=== PATIENT | female | born 1985 | race Caucasian/White ===

== ENCOUNTER 2022-07-05 15:38 | Emergency (ER) | payer OTHER, SELFPAY ==
[2022-07-05] VITALS (8 sets, daily range): BP systolic 119–159; BP diastolic 80–103; PULSE 98–112; RESP 16–18; TEMP 36.7–36.8; O2SAT 97–99; BMI 46.0
--- NOTE | 2022-07-05 15:45 | HMH.EDABDPAI ---
Discharge Plan Disposition Patient Disposition: Home, Self-Care Condition: Fair Prescriptions Prescriptions: New amoxicillin-pot clavulanate [Augmentin] 500-125 mg tablet 1 tab PO BID Qty: 20 0RF hydrocodone-acetaminophen 7.5-325 mg tablet 1 tab PO Q8H PRN (Reason: pain) Qty: 10 0RF Referrals Follow up/Referrals: Provider,Kathryn, [Primary Care Provider] - See instructions Lb Taylor MD [Staff Physician] - See instructions Activity Restrictions/Add. Instructions Additional Instructions/Restrictions: Follow-up with your primary care doctor and or a general surgeon within the next week. Your ultrasound today showed gallstones in your gallbladder. There is no evidence of a gallstone blocking any of your ducts at this time. Also, your gallbladder looks mildly inflamed or infected. Avoid fatty foods. This includes healthy oils such as olive oil. Follow-up with Dr. Taylor, the surgeon on Thursday. Please return to the emergency department immediately if you feel worse in any way. Clinical Impressions Clinical Impression: Cholelithiasis and acute cholecystitis without obstruction Instructions Patient Instructions: DI for Gallstones Discharge ED Provider: Sanya Collazo Abdominal Pain HPI General Chief Complaint: Abdominal Pain Stated Complaint: abdomen pain Time Seen by Provider: 07/05/22 15:45 Mode of Arrival: Ambulatory Source of Information: Patient Limitations: No Limitations History of Present Illness HPI narrative: The patient presents to the emergency department complaining of right upper quadrant pain that began yesterday about half an hour after having had dinner. This is associated with some mild nausea. She vomited once. She denies any diarrhea, hematemesis or hematochezia. She also denies fevers. Related Data Previous Rx's Medication Instructions Recorded amoxicillin 500 mg-potassium 1 tab PO BID #20 tabs 07/05/22 clavulanate 125 mg tablet (Augmentin) hydrocodone 7.5 mg-acetaminophen 1 tab PO Q8H PRN pain #10 tabs 07/05/22 325 mg tablet Allergies Allergy/AdvReac Type Severity Reaction Status Date / Time No Known Allergies Allergy Verified 07/05/22 15:53 PFSH PFSH Social History Smoking Status: Never smoker alcohol intake: never current occupational status: employed Travel in the last 8 weeks: None ROS Obtained: Yes All systems reviewed & no additional complaints except as documented Physical Exam General General appearance: alert Head Head exam: atraumatic Eye Eye exam: Present normal appearance; Absent scleral icterus ENT ENT exam: Present normal exam Neck Neck exam: Present normal inspection and full ROM; Absent tenderness or meningismus Chest Chest inspection: Present normal inspection and symmetric chest wall rise; Absent tenderness Respiratory Respiratory exam: Present normal lung sounds bilaterally; Absent respiratory distress or accessory muscle use Cardiovascular Cardiovascular exam: Present regular rate, normal rhythm and normal heart sounds Abdominal Exam Abdominal exam: Present soft, tenderness (Mild right upper quadrant tenderness.) and normal bowel sounds; Absent distention, heel tap sign, Sepulveda's sign, Rovsing's sign, tenderness at McBurney's Point or mass Extremities Exam Extremities exam: Present normal inspection and full ROM; Absent edema Back Exam Back exam: Present normal inspection; Absent CVA tenderness (R) or CVA tenderness (L) Neurological Exam Neurological exam: Present alert and oriented X3 Psychiatric Psychiatric exam: Present normal affect and normal mood Skin Skin exam: Present warm, dry, intact and normal color Medical Decision Making Anselmo Inquiry Pt receiving controlled substance: Yes Anselmo was queried for this patient: Yes Risks and benefits of using a controlled substance: were discussed with pt by Vital Signs: 07/05/22 15:40 07/05/22 16:00 07/05/22 16:30 Temperature 98.3 F Temper
[2022-07-05 16:09] LABS: Microscopic, Urine URINE MICROSCOPIC (MICROSCOPIC)
[2022-07-05 16:19] LABS: Basophils # 0.2 K/mm3 (0-0.2); Basophils % 1.4 % (0.1-2.0); Chloride 99 mmol/L (98-107); Eosinophils # 0.3 K/mm3 (0.0-0.4); Eosinophils % 1.5 % (0.1-12.0); Hemoglobin 16.3 g/dL (12.2-16.2); Lymphocytes # 2.7 K/mm3 (0.7-4.5); Lymphocytes % 15.8 % (10-50); Mean Corpuscular Hemoglobin 30.5 pg (27.0-31.2); Mean Corpuscular Volume 89.6 fl (81-99); Monocytes # 0.9 K/mm3 (0.1-1.0); Monocytes % 5.5 % (1.7-9.3); Neutrophils # 12.8 K/mm3 (1.8-7.8); Neutrophils % 75.9 % (37.0-80.0); Platelet Count 447 K/mm3 (142-424); Red Blood Count 5.36 M/mm3 (4.20-5.40); Red Cell Distribution Width 13.3 % (11.5-17.5); Sodium 140 mmol/L (136-145); White Blood Count 16.9 K/mm3 (4.8-10.8)
[2022-07-05 16:20] LABS: HCG Qualitative, Serum Negative (Negative); Potassium 3.8 mmoL/L (3.5-5.1)
[2022-07-05 16:22] LABS: Alanine Aminotransferase 45 U/L (12-78); Alkaline Phosphatase 88 U/L (38-126); Anion Gap 17.8 mEq/L (5-15); Aspartate Amino Transferase 33 U/L (14-36); Bilirubin,Total 0.4 mg/dl (0.2-1.3); Blood Urea Nitrogen 6 mg/dl (7-17); Calcium 9.4 mg/dl (8.4-10.2); Carbon Dioxide 27 mmol/L (22.0-30.0); Creatinine Clearance Estimated 81 mL/min (50-200); Estimated Glomerular Filt Rate 93 ml/min (>60); GFR (African American) 113 ML/MIN (>60); Glucose 104 mg/dl (74-100); Lipase 39 U/L (23-300)
[2022-07-05 16:23] LABS: Albumin/Globulin Ratio 1.2 (1.1-1.8); Globulin 4.2 g/dL (1.3-3.2); Total Protein,Serum 9.2 g/dl (6.3-8.2)
[2022-07-05 16:29] LABS: Appearance,Urine CLEAR (Clear); Bilirubin,Urine Negative (Negative); Blood, Urine 2+ (Negative); Color,Urine YELLOW (Yellow); Glucose,Urine (UA) Negative (Negative); Ketones,Urine Negative (Negative); Leukocyte Esterase,Urine Negative (Negative); Nitrate,Urine Negative (Negative); Protein,Urine Negative (Negative); Specific Gravity, Urine >= 1.030 (1.005-1.030); Urobilinogen,Urine 0.2 EU/dl (0.2)
[2022-07-05 16:31] LABS: MANUAL DIFFERENTIAL MANUAL DIFFERENTIAL (MANUAL DIFF)
--- NOTE | 2022-07-05 16:32 | US_ITS ---
PROCEDURE INFORMATION: Exam: US Abdomen, Limited; Right Upper Quadrant Exam date and time: 07/05/2022 5:58 PM Age: 37 years old Clinical indication: Abdominal pain; Localized; Right upper quadrant (ruq); Additional info: Ruq pain with elevated wbc TECHNIQUE: Imaging protocol: Real time ultrasound of the abdomen with image documentation. Limited exam focused on the right upper quadrant. COMPARISON: No relevant prior studies available. FINDINGS: Liver: Unremarkable. Gallbladder: Gallbladder is moderately distended and contains multiple gallstones of variable sizes. Gallbladder wall is mildly thickened with trace pericholecystic fluid. Sonographic Sepulveda sign was not documented in household personal assistant report. Biliary ducts: No intra- or extra-hepatic ductal dilatation. Pancreas: Visualized portion is unremarkable. No evidence of pancreatic ductal dilatation. Right kidney: Normal in size and echogenicity. No evidence of stones. No hydronephrosis. IMPRESSION: Findings detailed above are compatible with acute gallstone cholecystitis.
[2022-07-05 16:48] LABS: Bacteria,Urine Trace /lpf; WBC,Urine Occasional #/hpf (0-3)
--- NOTE | 2022-07-05 16:57 | HMH.ITSTN ---
Joaquín Cueva is wanting an ultrasound of the gallbladder. I advised tech will be in at 6 he agreed for her to scan pt then. I advised aircraft maintenance technician
[2022-07-05 17:17] LABS: Lymphocytes % 15 % (10-50); Monocytes % 7 % (2-9); Neutrophils % 78 % (42-76); Platelet Estimate Normal; RBC Morphology Normal; Total Cells Counted 100
--- NOTE | 2022-07-05 17:54 | PC.NURSE ---
pt to u/s at this time
--- NOTE | 2022-07-05 19:17 | PC.NURSE ---
Dr Collazo speaking with Dr Taylor
--- NOTE | 2022-07-05 19:23 | PC.NURSE ---
PT IS LESLEY F/U OUTPT WITH DR LOZANO
== END 2022-07-05 19:55 | disposition home or self-care (01) ==
PROVIDERS: Emergency Provider Emergency Medicine
DX: K80.00 Calculus of gallbladder with acute cholecystitis without obstruction (principal)
CPT/HCPCS: 76705; 80053; 81001; 83690; 84703; 85007; 85025; 96365; 96372; 96375; 99284; J2405

== ENCOUNTER → 2022-07-09 10:41 | Outpatient (CLI) | payer OTHER, SELFPAY ==
[2022-07-09 10:47] LABS: Coronavirus 19, PCR Not Detected (NotDetected); Influenza A, PCR Not Detected (NotDetected); Influenza B, PCR Not Detected (NotDetected)
[2022-07-09 11:05] LABS: Basophils # 0.2 K/mm3 (0-0.2); Basophils % 1.9 % (0.1-2.0); Eosinophils # 0.6 K/mm3 (0.0-0.4); Eosinophils % 6.2 % (0.1-12.0); Hematocrit 41.9 % (37.0-47.0); Hemoglobin 13.6 g/dL (12.2-16.2); Lymphocytes # 2.1 K/mm3 (0.7-4.5); Lymphocytes % 22.9 % (10-50); Mean Corpuscular HGB Conc 32.5 g/dL (31.8-35.4); Mean Corpuscular Volume 92.2 fl (81-99); Mean Platelet Volume 7.9 fl (7.4-10.4); Monocytes # 0.5 K/mm3 (0.1-1.0); Monocytes % 5.5 % (1.7-9.3); Neutrophils # 5.7 K/mm3 (1.8-7.8); Neutrophils % 63.6 % (37.0-80.0); Platelet Count 415 K/mm3 (142-424); Red Blood Count 4.54 M/mm3 (4.20-5.40); Red Cell Distribution Width 13.4 % (11.5-17.5)
[2022-07-09 12:03] LABS: Urine Pregnancy, HCG Qual. Negative (Negative)
[2022-07-09 12:36] LABS: Chloride 100 mmol/L (98-107); Potassium 4.5 mmoL/L (3.5-5.1); Sodium 139 mmol/L (136-145)
[2022-07-09 12:39] LABS: Alanine Aminotransferase 46 U/L (12-78); Albumin Level 4.1 g/dl (3.5-5.0); Albumin/Globulin Ratio 1.4 (1.1-1.8); Alkaline Phosphatase 104 U/L (38-126); Anion Gap 14.5 mEq/L (5-15); Aspartate Amino Transferase 37 U/L (14-36); Bilirubin,Total 0.3 mg/dl (0.2-1.3); Blood Urea Nitrogen 4 mg/dl (7-17); Calcium 8.7 mg/dl (8.4-10.2); Carbon Dioxide 29 mmol/L (22.0-30.0); Estimated Glomerular Filt Rate 111 ml/min (>60); GFR (African American) 135 ML/MIN (>60); Glucose 89 mg/dl (74-100); Total Protein,Serum 7.1 g/dl (6.3-8.2)
== END ==
PROVIDERS: PCP Internal Medicine; Visit Provider Surgery
DX: Z01.812 Encounter for preprocedural laboratory examination (principal); Z20.822 Contact with and (suspected) exposure to COVID-19; K80.00 Calculus of gallbladder with acute cholecystitis without obstruction
CPT/HCPCS: 36415; 80053; 81025; 85025; C9803; U0003; U0005

== ENCOUNTER 2022-07-10 08:08 | Day surgery (SDC) | payer OTHER, SELFPAY ==
[2022-07-10] VITALS (11 sets, daily range): BP systolic 110–152; BP diastolic 77–90; PULSE 91–125; RESP 16–22; TEMP 36.1–43; O2SAT 93–97; BMI 45.7
--- NOTE | 2022-07-10 08:57 | EXP.ANES.CKL ---
PFSH PFS Medical History Allergies Gallbladder disease Surgical History No significant past surgical history Family History Other Family history of asthma Family history of hypertension Family history of hypothyroidism Family history of myocardial infarction Social History Smoking Status: Never smoker alcohol intake: never substance use type: denies use current occupational status: employed Travel in the last 8 weeks: None household members: family housing: house marital status: number of children: 1 education level: high school special tsering needs: No agree to transfusion: No do you feel safe at home: Yes victim of physical abuse: No victim of emotional abuse: No victim of sexual abuse: No would you like helpful sources: No [facility] Anesthesia Checklist Patient Identification Patient Identification: Arm Band Structural Data Admitted From: Home Planned Operative Procedure/s: Laparoscopic Cholecystectomy Consent for Planned Operative Procedure(s) Verified: Yes Verified Documents: Surgical Consent and History and Physical NPO Status Verified Time NPO: 00:00 Additional verifications Anesthesia Reactions: No Hx Blood Transfusions: No Blood Transfusion Reaction: No Airway Assessment C-Spine Mobility Assessed: Yes (mp2) TMJ Mobility Assessed: Yes Dentition: Good Dentition Neurological Assessment Level of Consciousness: Awake and Alert Anesthesia Plan Anesthesia Risk discussed: Yes Anesthesia Plan: Verified ASA Class: III Anesthesia Type: General
--- NOTE | 2022-07-10 11:46 | P.OP_ITS ---
Date of procedure: 07/10/22 Pre-op Diagnosis:: Acute calculus cholecystitis Post-op Diagnosis:: Same Procedure performed:: Laparoscopic cholecystectomy Surgeon:: Lb Taylor MD Anesthesia: GETA Estimated blood loss (mL): 25 Operative findings:: Severe gallbladder distention Severe acute inflammatory response Early focal serosal necrosis along dome of gallbladder Dome down approach utilized secondary to above findings Operative note:: After informed consent was obtained, the patient was taken to the operating room and placed in the supine position. General anesthesia was induced and the abdomen was prepped and draped in a sterile fashion. After infiltration with local anesthetic an infraumbilical incision was made. A Veress needle was placed in position. The abdomen was insufflated. A 5 mm optical trocar was placed in position. Under direct visualization, a 12 mm trocar was placed in the subxiphoid position and 2 additional 5 mm trocars were placed in the right upper quadrant. The gallbladder was elevated up and over the liver margin. Severe distention and inflammatory changes noted. Focal serosal necrosis/erosion was also noted. The gallbladder was decompressed by way of suctioning after a small opening within the dome was made with harmonic roz. Severe tissue thickening and inflammatory changes were noted throughout. The tissue around the cystic duct was carefully dissected. The decision was made to proceed with a dome down approach secondary to severe infundibular thickening. Harmonic roz were then utilized to dissect the gallbladder away from the liver margin. Endoloops (x2) were then used to control the infundibulum prior to transection with harmonic roz. The gallbladder was placed in a retrieval bag and removed through the subxiphoid trocar site. The right upper quadrant wa s thoroughly irrigated. No active bleeding or bile leak was noted. Fascia at the subxiphoid trocar site was reapproximated utilizing 0 Ethibond. The remaining trocars were removed. All wounds were irrigated and skin was closed with rashaad The patient's anesthetic agents were reversed and extubation was completed prior to transfer to recovery in stable condition. Condition: stable Disposition: PACU Specimens:: Gallbladder and contents Complications:: No immediate
--- NOTE | 2022-07-10 12:01 | P.PNANES_ITS ---
[facility] Anesthesia Record Part I Anesthesia Record I Intake, IV Amount: 600 Estimated blood loss (mL): 25 Urine output (mL): 0 Blood Products used (#): none Blood Pressure: 133/78 SaO2: 97 Pulse Rate: 125 Respiratory Rate: 20 Temperature: 99.4 F Patient is:: Drowsy and Stable Stable to PACU at:: 11:48
--- NOTE | 2022-07-10 12:30 | PC.NURSE ---
1214-pt's HR remains 120's after fluid bolus administered as ordered per Bhupendra,Bhupendra MICHAELS at bedside and administered Metoprolol 2mg ivp xonce (see anesthesia record for details), pt remains sinus rhythm on telemetry, will continue to monitor
--- NOTE | 2022-07-10 12:32 | PC.NURSE ---
1226-detailed report called to Susan,YESIKA 1229-pt transported to post op via stretcher w/sharon rails up and left in care of YESIKA Liang and YESIKA Davis with bed locked in lowest position, vss, pt stable
[2022-07-11 09:24] VITALS: BP 110/77; PULSE 94; TEMP 36.9
--- NOTE | 2022-07-11 09:24 | P.PNANES_ITS ---
[facility] Anesthesia Record Part II Anesthesia Record Part II Discharge Time: 12:28 Destination: Surgical Day Care (OP Surgery) PACU nurse assessment reviewed?: Yes Patient Condition:: Good Anesthesia Complications:: None Swallowing reflex intact?: Yes Cyanosis?: No Blood Pressure: 110/77 Pulse Rate: 94 Temperature: 98.4 F Mental Status: Alert & Oriented Pain level:: 0 Nausea and/or vomitting:: None Intake, IV Amount: 0
== END 2022-07-10 13:02 | disposition home or self-care (01) ==
PROVIDERS: PCP Internal Medicine; Visit Provider Surgery
PROC: 0FT44ZZ Resection of Gallbladder, Percutaneous Endoscopic Approach (ICD-10-PCS; CPT 47562; principal; 2022-07-10 09:45)
DX: K82.8 Other specified diseases of gallbladder; K80.12 Calculus of gallbladder with acute and chronic cholecystitis without obstruction; Z79.899 Other long term (current) drug therapy
CPT/HCPCS: 47562; 96374; J2405